=== PATIENT | male | born 1950 | race Caucasian/White ===

== ENCOUNTER 2016-08-02 07:15 | Day surgery (SDC) | payer MEDICARE ==
[2016-08-02] MEDS ORDERED: LACTATED RINGERS 1,000 ML IV ONE ×2 (07:51→09:28)
[2016-08-02] MEDS ORDERED: BENZOCAINE/TETRACAINE/BUTAMBEN SPRAY 56 GM TOP ONE (08:57)
[2016-08-02] MEDS ORDERED: EPINEPHrine ABBOJECT 1 MG/10 ML SYRINGE IVP ONE (09:00)
[2016-08-02] MEDS ORDERED: fentaNYL 100 MCG/2 ML VIAL IVP ONE (10:01)
[2016-08-02] MEDS ORDERED: MIDAZOLAM 2 MG/2 ML VIAL IVP ONE (10:01)
[2016-08-02 11:27] VITALS: BP 123/76
== END 2016-08-02 07:16 | disposition home or self-care (01) ==
LOC: SDS 07:15
PROVIDERS: ATTEND Surgery
PROC: 0DB68ZX Excision of Stomach, Via Natural or Artificial Opening Endoscopic, Diagnostic (ICD-10-PCS; principal; 2016-08-02 08:30)
PROC: 0DJD8ZZ Inspection of Lower Intestinal Tract, Via Natural or Artificial Opening Endoscopic (ICD-10-PCS; 2016-08-02 08:30)
DX: Z12.11 Encounter for screening for malignant neoplasm of colon (principal); K21.9 Gastro-esophageal reflux disease without esophagitis; Z87.891 Personal history of nicotine dependence; Z86.010 Personal history of colon polyps
CPT/HCPCS: 43239; 87081; A9270; G0121; J7120; 88305

== ENCOUNTER 2016-11-14 08:00 | Outpatient (CLI) | payer MEDICARE ==
[2016-11-14 19:21] LABS: BASOPHILS # (AUTO) 0.1 10^3/uL (0.0-0.1); BASOPHILS % (AUTO) 1.1 %; EOSINOPHILS # (AUTO) 0.6 10^3/uL (0.0-0.7); EOSINOPHILS % (AUTO) 8.3 %; HCT - HEMATOCRIT 45.6 % (42.0-52.0); HGB - HEMOGLOBIN 15.2 g/dL (14.0-18.0); LYMPHOCYTES % (AUTO) 29.7 %; MEAN CORPUSCULAR HEMOGLOBIN 30.6 pg (27.0-31.0); MEAN CORPUSCULAR HGB CONC 33.4 g/dL (32.0-36.0); MEAN CORPUSCULAR VOLUME 91.5 fL (80.0-94.0); MEAN PLATELET VOLUME 6.9 fL (7.4-11.4); MONOCYTES # (AUTO) 0.7 10^3/uL (0.0-1.0); NEUTROPHILS # (AUTO) 3.5 10^3/uL (1.5-6.6); NEUTROPHILS % (AUTO) 50.9 %; NUCLEATED RED BLOOD CELLS AUTO 0.1 /100WBC; RED BLOOD COUNT 4.98 10^6/uL (4.70-6.10); RED CELL DISTRIBUTION WIDTH 13.1 % (12.0-15.0); UNCORRECTED WHITE BLOOD COUNT 6.8 x10^3/uL; WHITE BLOOD COUNT 6.8 x10^3/uL (4.8-10.8)
[2016-11-14 19:42] LABS: ALBUMIN/GLOBULIN RATIO 1.8 (1.0-2.2); BILIRUBIN,TOTAL 0.6 mg/dL (0.2-1.0); BUN - BLOOD UREA NITROGEN 13 mg/dL (6-20); CALCIUM 9.5 mg/dL (8.5-10.3); CARBON DIOXIDE - CO2 30 mmol/L (21-32); CHLORIDE 98 mmol/L (101-111); CHOL/HDL RATIO 3.6 (<5.0); CHOLESTEROL 168 mg/dL; CREATININE 0.9 mg/dL (0.6-1.2); GFR - MDRD 84 (>89); GLUCOSE 102 mg/dL (70-100); HDL CHOLESTEROL 47 mg/dL; LDL/HDL RATIO 2.3 (<3.6); SODIUM 136 mmol/L (135-145); TRIGLYCERIDES 73 mg/dL; VLDL CHOLESTEROL 15 mg/dL
== END 2016-11-14 08:01 | disposition home or self-care (01) ==
LOC: LAB.R 08:00
PROVIDERS: ATTEND Nurse Practitioner Primary Care
DX: N40.0 Benign prostatic hyperplasia without lower urinary tract symptoms (principal); K21.9 Gastro-esophageal reflux disease without esophagitis; J32.8 Other chronic sinusitis; K27.9 Peptic ulcer, site unspecified, unspecified as acute or chronic, without hemorrhage or perforation; Z79.899 Other long term (current) drug therapy; E78.5 Hyperlipidemia, unspecified; F31.60 Bipolar disorder, current episode mixed, unspecified
CPT/HCPCS: 80053; 80061; 84153; 84443; 85025

== ENCOUNTER 2017-02-03 08:00 | Outpatient (CLI) | payer MEDICARE ==
[2017-02-03 16:36] LABS: CHOL/HDL RATIO 5.5 (<5.0); CHOLESTEROL 274 mg/dL; HDL CHOLESTEROL 50 mg/dL; TRIGLYCERIDES 121 mg/dL; VLDL CHOLESTEROL 24 mg/dL
== END 2017-02-03 08:01 | disposition home or self-care (01) ==
LOC: LAB.R 08:00
PROVIDERS: ATTEND Nurse Practitioner Primary Care
DX: E78.5 Hyperlipidemia, unspecified (principal)
CPT/HCPCS: 80061

== ENCOUNTER 2018-01-22 09:23 | Outpatient (CLI) | payer MEDICARE ==
[2018-01-22 14:13] LABS: BASOPHILS % (AUTO) 1.1 %; EOSINOPHILS # (AUTO) 0.5 10^3/uL (0.0-0.7); EOSINOPHILS % (AUTO) 11.1 %; HGB - HEMOGLOBIN 14.6 g/dL (14.0-18.0); LYMPHOCYTES # (AUTO) 1.6 10^3/uL (1.5-3.5); LYMPHOCYTES % (AUTO) 34.7 %; MEAN CORPUSCULAR HEMOGLOBIN 31.3 pg (27.0-31.0); MEAN CORPUSCULAR HGB CONC 33.9 g/dL (32.0-36.0); MEAN CORPUSCULAR VOLUME 92.3 fL (80.0-94.0); MEAN PLATELET VOLUME 6.9 fL (7.4-11.4); MONOCYTES # (AUTO) 0.5 10^3/uL (0.0-1.0); MONOCYTES % (AUTO) 10.3 %; NEUTROPHILS # (AUTO) 1.9 10^3/uL (1.5-6.6); NEUTROPHILS % (AUTO) 42.8 %; PLT - PLATELET COUNT 285 10^3/uL (130-450); RED BLOOD COUNT 4.67 10^6/uL (4.70-6.10); RED CELL DISTRIBUTION WIDTH 13.2 % (12.0-15.0); WHITE BLOOD COUNT 4.5 x10^3/uL (4.8-10.8)
[2018-01-22 14:23] LABS: ALBUMIN 4.3 g/dL (3.2-5.5); ALKALINE PHOSPHATASE 59 IU/L (42-121); ALT ALANINE AMINOTRANSFERASE 20 IU/L (10-60); AST ASPARTATE AMINOTRANSFERASE 22 IU/L (10-42); BUN - BLOOD UREA NITROGEN 14 mg/dL (6-20); CARBON DIOXIDE - CO2 30 mmol/L (21-32); CHLORIDE 100 mmol/L (101-111); CREATININE 0.9 mg/dL (0.6-1.2); GFR - MDRD 84 (>89); GLUCOSE 95 mg/dL (70-100); SODIUM 136 mmol/L (135-145); TOTAL PROTEIN 6.9 g/dL (6.7-8.2)
[2018-01-22 14:24] LABS: ALBUMIN/GLOBULIN RATIO 1.7 (1.0-2.2); CHOL/HDL RATIO 5.3 (<5.0); CHOLESTEROL 248 mg/dL; HDL CHOLESTEROL 47 mg/dL; LDL CHOLESTEROL,CALCULATED 176 mg/dL; LDL/HDL RATIO 3.7 (<3.6); VLDL CHOLESTEROL 25 mg/dL
[2018-01-22 14:41] LABS: HB2 TOTAL 15.5 g/dL; HEMOGLOBIN A1C 0.57 g/dL; HEMOGLOBIN A1C % 5.5 % (4.6-6.2)
== END 2018-01-22 23:59 | disposition home or self-care (01) ==
LOC: LAB.R 09:23
PROVIDERS: ATTEND Nurse Practitioner Primary Care
DX: R73.01 Impaired fasting glucose (principal); C67.9 Malignant neoplasm of bladder, unspecified; Z79.899 Other long term (current) drug therapy; E78.5 Hyperlipidemia, unspecified
CPT/HCPCS: 80053; 80061; 83036; 83721; 84443; 85025

== ENCOUNTER 2020-03-20 08:34 | Outpatient (CLI) | payer MEDICARE | END 2020-03-20 08:35 | disposition critical access hospital (66) | LOC: EMS 08:34 | PROVIDERS: ATTEND Surgery | DX: M54.5 Low back pain (principal); M79.604 Pain in right leg | CPT/HCPCS: A0425; A0429 ==

== ENCOUNTER 2020-03-20 08:50 | Emergency (ER) | payer MEDICARE ==
--- NOTE | 2020-03-20 08:58 | ED Physician Documentation ---
PD HPI BACK PAIN - Stated complaint Stated Complaint: BACK PX - History obtained from History obtained from: Patient - History of Present Illness Timing - onset: Last night Timing - duration: Days (/2) Timing - details: Abrupt onset, Still present Location: Lower, Right Quality: Pain, Spasm Associated symptoms: No: Fever, Weakness, Numbness, Incontinent of urine Improves with: Meds (some better with Ibuprofen last night, but severe this morning and unable to get out of bed.). No: Rest Worsened by: Movement, Twisting, Palpation (around right SI area) Contributing factors: Lifting (he was doing some usual lifting couple days ago without pain then. Had onset some pain last evening when just twisted mild and then it got worse. IMproved with Ibuprofen but markedly worse this morning.) Similar symptoms before: Has not had sx before Recently seen: Not recently seen Review of Systems Constitutional: denies: Fever, Chills Nose: denies: Rhinorrhea / runny nose, Congestion Throat: denies: Sore throat Respiratory: denies: Cough GI: denies: Abdominal Pain, Nausea, Vomiting, Constipation, Diarrhea : denies: Dysuria, Frequency, Incontinent Skin: denies: Rash, Lesions Neurologic: denies: Focal weakness, Numbness PD PAST MEDICAL HISTORY - Past Medical History Cardiovascular: High cholesterol Respiratory: None Endocrine/Autoimmune: None GI: GERD, Ulcers : Frequency HEENT: None Psych: Depression Musculoskeletal: Osteoarthritis Derm: None - Past Surgical History Past Surgical History: No General: Colonoscopy, EGD Ortho: Other - Present Medications Home Medications: Ambulatory Orders Medication Instructions Recorded Confirmed Oxycodone HCl/Acetaminophen 1 each PO Q6H PRN #20 tablet 03/20/20 [Percocet 5-325 mg Tablet] dexAMETHasone [Decadron] 4 mg PO DAILY #7 tablet 03/20/20 tiZANidine [Zanaflex] 4 mg PO Q8H PRN #25 tablet 03/20/20 - Allergies Allergies/Adverse Reactions: Allergies Allergy/AdvReac Type Severity Reaction Status Date / Time No Known Drug Allergies Allergy Verified 03/20/20 08:58 - Social History Does the pt smoke?: No Smoking Status: Never smoker Does the pt drink ETOH?: No Does the pt have substance abuse?: No - Immunizations Immunizations are current?: Yes PD ED PE NORMAL - Vitals Vital signs reviewed: Yes - General General: Alert and oriented X 3, Well developed/nourished, Other (seems in considerable pain; lying left side and guarding ROM of the back. ) - Cardiac Cardiac: RRR, No murmur - Respiratory Respiratory: Clear bilaterally - Abdomen Abdomen: Soft, Non tender - Male Male : Deferred - Rectal Rectal: Deferred - Back Back: No CVA TTP, No spinal TTP (tender at right SI area mainly. Not tender nidline. ) - Derm Derm: Normal color, Warm and dry, No rash - Neuro Neuro: Alert and oriented X 3, No motor deficit, No sensory deficit, Normal speech, Other (normal knee reflexes. ) Results - Vitals Vitals: Vital Signs - 24 hr 03/20/20 03/20/20 03/20/20 08:59 10:04 11:07 Temperature 36.7 C 36.6 C Heart Rate 78 58 L 69 Respiratory 18 16 16 Rate Blood Pressure 132/74 H 128/58 L 136/77 H O2 Saturation 100 99 96 Oxygen O2 Source Room air - Labs Labs: Laboratory Tests 03/20/20 10:30 Urine Color YELLOW Urine Clarity CLEAR Urine pH 7.0 Ur Specific [place] 1.020 Urine Protein NEGATIVE Urine Glucose (UA) NEGATIVE Urine Ketones NEGATIVE Urine Occult Blood NEGATIVE Urine Nitrite NEGATIVE Urine Bilirubin NEGATIVE Urine Urobilinogen 0.2 (NORMAL) Ur Leukocyte Esterase NEGATIVE Ur Microscopic Review NOT INDICATED Urine Culture Comments NOT INDICATED PD MEDICAL DECISION MAKING - ED course Complexity details: re-evaluated patient (improved considerably after meds and he declined further here. ), considered differential (right low back pain/SI area without red flags to suggest need for imaging/labs. ), d/w patient Departure - Departure Disposition: 01 Home, Self Care Clinical Impression: Low back strain Qualifiers: Encounter type: initial encounter Qualified Code(s): S39.012A - Strain of muscle, fascia and tendon of lower back, initial encounter Condition: Stable Record reviewed to determine appropriate education?: Yes Instructions: ED Low Back Pain Injury Prescriptions: dexAMETHasone [Decadron] 4 mg PO DAILY #7 tablet Oxycodone HCl/Acetaminophen [Percocet 5-325 mg Tablet] 1 each PO Q6H PRN #20 tablet PRN Reason: pain tiZANidine [Zanaflex] 4 mg PO Q8H PRN #25 tablet PRN Reason: Spasms Comments: This seems likely to be a strain and inflammation of the lower back muscles or the ligaments associated with the sacroiliac joint. Typically these are short- term problems meaning improving over several days to a week or 2. Mechanical treatments/physical treatments such as chiropractic massage and therapy are all good for this. Heat and gentle stretching for the low back to reduce spasming as well. Use anti-inflammatories of Decadron daily for a week as well as muscle relaxant tizanidine 3 times a day. To that add Tylenol or Percocet as needed for pain. Progress activity as able over several days to week. Recheck if not improved well in that timeframe. Discharge Date/Time: 03/20/20 11:15
[2020-03-20] MEDS ORDERED: HYDROmorphone 2 MG/ML VIAL IM STA (09:11)
[2020-03-20] MEDS ORDERED: KETOROLAC 30 MG/ML VIAL IM STA (09:11)
[2020-03-20] MEDS ORDERED: methocarbamoL 500 MG TABLET PO STA (09:11)
[2020-03-20 10:41] LABS: BILIRUBIN,URINE NEGATIVE (NEGATIVE); GLUCOSE, URINE (UA) NEGATIVE (NEGATIVE); KETONES,URINE (UA) NEGATIVE (NEGATIVE); LEUKOCYTE ESTERASE, URINE NEGATIVE (NEGATIVE); NITRITE,URINE NEGATIVE (NEGATIVE); OCCULT BLOOD,URINE NEGATIVE (NEGATIVE); PROTEIN,URINE NEGATIVE (NEGATIVE); UROBILINOGEN,URINE 0.2 (NORMAL) E.U./dL (NORMAL)
[2020-03-20 10:42] LABS: CLARITY,URINE CLEAR (CLEAR)
[2020-03-20 11:08] VITALS: BP 136/77
== END 2020-03-20 11:15 | disposition home or self-care (01) ==
LOC: EDUNIT# → ED 08:50
DX: S39.012A Strain of muscle, fascia and tendon of lower back, initial encounter (principal); X50.0XXA Overexertion from strenuous movement or load, initial encounter; Y93.89 Activity, other specified
CPT/HCPCS: 81003; 96372; 99284; 99285; A9270; J1170; 81001; 87086

== ENCOUNTER 2020-04-03 12:26 | Emergency (ER) | payer MEDICARE ==
[2020-04-03] MEDS ORDERED: KETOROLAC 30 MG/ML VIAL IVP STA (12:39)
[2020-04-03] MEDS ORDERED: HYDROmorphone 1 MG/ML CARPUJECT IVP STA ×4 (12:39→22:53)
--- NOTE | 2020-04-03 12:50 | ED Physician Documentation ---
PD HPI BACK PAIN - Stated complaint Stated Complaint: BACK PX - Chief complaint Chief Complaint: Back Pain - History obtained from History obtained from: Patient - Additional information Additional information: 69-year-old gentleman with no history of back issues until about 2 weeks ago. He developed right-sided pain near the SI joint which radiated into the buttock and leg with some numbness of the right foot. It was after working heavily around the house without specific injury. Prior to that he really had no issues with his back. Pain is severe. He was seen here and a urinalysis was done and normal. Medicated with good effect with Dilaudid and Toradol and then sent home with some pain meds (percocet/tizanidine and decadron) which was modestly effective. Over the last 5 days he has become completely nonfunctional and basically bedbound due to the pain. He denies incontinence of bowel or bladder. No fevers or unintended weight loss. He does have a remote history of bladder cancer treated without adjuvant therapy. Review of Systems Constitutional: reports: Reviewed and negative Eyes: reports: Reviewed and negative Ears: reports: Reviewed and negative Nose: reports: Reviewed and negative Throat: reports: Reviewed and negative Cardiac: reports: Reviewed and negative Respiratory: reports: Reviewed and negative PD PAST MEDICAL HISTORY - Past Medical History Cardiovascular: High cholesterol Respiratory: None Endocrine/Autoimmune: None GI: GERD, Ulcers : Frequency HEENT: None Psych: Depression Musculoskeletal: Osteoarthritis Derm: None - Past Surgical History Past Surgical History: No General: Colonoscopy, EGD Ortho: Other - Present Medications Home Medications: Ambulatory Orders Medication Instructions Recorded Confirmed Oxycodone HCl/Acetaminophen 1 each PO Q6H PRN #20 tablet 03/20/20 04/03/20 [Percocet 5-325 mg Tablet] - Allergies Allergies/Adverse Reactions: Allergies Allergy/AdvReac Type Severity Reaction Status Date / Time No Known Drug Allergies Allergy Verified 04/03/20 12:32 - Social History Does the pt smoke?: No Smoking Status: Never smoker Does the pt drink ETOH?: No Does the pt have substance abuse?: No - Immunizations Immunizations are current?: Yes PD ED PE NORMAL - Vitals Vital signs reviewed: Yes - General General: Alert and oriented X 3, Other (He appears quite uncomfortable, is laying left lateral decubitus with legs extended at the knees and hips.) - HEENT HEENT: PERRL, EOMI - Neck Neck: Supple, no meningeal sign, No bony TTP - Cardiac Cardiac: RRR, No murmur - Respiratory Respiratory: No respiratory distress, Clear bilaterally - Abdomen Abdomen: Normal bowel sounds, Soft, Non tender - Back Back: Other (Mild TTP the low lumbar spine on the right side) - Extremities Extremities: Other (Hyperesthetic to the lateral calf on the right. Otherwise he has symmetric sensation throughout the lower extremities. Difficult to check reflexes and strength on initial evaluation due to profound pain.) - Neuro Neuro: Alert and oriented X 3, Normal speech - Psych Psych: Normal mood, Normal affect Results - Vitals Vitals: Vital Signs - 24 hr 04/03/20 04/03/20 04/03/20 12:33 12:35 14:46 Temperature 37.0 C Heart Rate 93 78 70 Respiratory 19 19 18 Rate Blood Pressure 131/118 H 138/90 H 125/84 H O2 Saturation 100 96 93 04/03/20 04/03/20 04/03/20 16:00 18:00 20:00 Temperature 36.6 C Heart Rate 66 86 90 Respiratory 19 17 18 Rate Blood Pressure 114/76 119/86 H 154/94 H O2 Saturation 94 96 97 Oxygen O2 Source Room air - Labs Labs: Laboratory Tests 04/03/20 04/03/20 04/03/20 12:48 12:48 12:48 WBC 7.8 RBC 5.41 Hgb 16.3 Hct 49.2 MCV 90.9 MCH 30.1 MCHC 33.1 RDW 12.3 Plt Count 326 MPV 8.2 Neut # (Auto) 5.4 Lymph # (Auto) 1.5 [place] # (Auto) 0.6 Eos # (Auto) 0.2 Baso # (Auto) 0.1 Absolute Nucleated RBC 0.00 Nucleated RBC % 0.0 ESR 1 Sodium 137 Potassium 3.6 Chloride 101 Carbon Dioxide 25 Anion Gap 11.0 BUN 19 Creatinine 0.9 Estimated GFR (MDRD) 84 L Glucose 111 H Calcium 9.7 C-Reactive Protein < 1.0 Nasal Adenovirus (PCR) Nasal B. parapertussis DNA (PCR) Nasal Coronavir 229E PCR Nasal Coronavir HKU1 PCR Nasal Coronavir NL63 PCR Nasal Coronavir OC43 PCR Nasal Enterovir/Rhinovir PCR Nasal Influenza B PCR Nasal Influenza A PCR Nasal Parainfluen 1 PCR Nasal Parainfluen 2 PCR Nasal Parainfluen 3 PCR Nasal Parainfluen 4 PCR Nasal RSV (PCR) Nasal B.pertussis DNA PCR Nasal C.pneumoniae (PCR) [place] Human Metapneumo PCR Nasal M.pneumoniae (PCR) Nasal SARS-CoV-2 (PCR) 04/03/20 21:10 WBC RBC Hgb Hct MCV MCH MCHC RDW Plt Count MPV Neut # (Auto) Lymph # (Auto) [place] # (Auto) Eos # (Auto) Baso # (Auto) Absolute Nucleated RBC Nucleated RBC % ESR Sodium Potassium Chloride Carbon Dioxide Anion Gap BUN Creatinine Estimated GFR (MDRD) Glucose Calcium C-Reactive Protein Nasal Adenovirus (PCR) NOT DETECTED Nasal B. parapertussis DNA (PCR) NOT DETECTED Nasal Coronavir 229E PCR NOT DETECTED Nasal Coronavir HKU1 PCR NOT DETECTED Nasal Coronavir NL63 PCR NOT DETECTED Nasal Coronavir OC43 PCR NOT DETECTED Nasal Enterovir/Rhinovir PCR NOT DETECTED Nasal Influenza B PCR NOT DETECTED Nasal Influenza A PCR NOT DETECTED Nasal Parainfluen 1 PCR NOT DETECTED Nasal Parainfluen 2 PCR NOT DETECTED Nasal Parainfluen 3 PCR NOT DETECTED Nasal Parainfluen 4 PCR NOT DETECTED Nasal RSV (PCR) NOT DETECTED Nasal B.pertussis DNA PCR NOT DETECTED Nasal C.pneumoniae (PCR) NOT DETECTED [place] Human Metapneumo PCR NOT DETECTED Nasal M.pneumoniae (PCR) NOT DETECTED Nasal SARS-CoV-2 (PCR) NOT DETECTED - Rads (name of study) MRI LS W/WO Radiology: Discussed with rads (Dr Lloyd), EMP read contemporaneously (see MDM-text box too small) PD MEDICAL DECISION MAKING - ED course ED course: 69-year-old gentleman presents with severe new onset low back pain of 2 weeks duration. He has 2 "red flags" for concerning causes of back pain, age greater than 50 and history of cancer. As such MRI imaging will be obtained. MRI L Spine, W/WO contrast: 1. The finding of contrast enhancement and elevated marrow signal centered on the L3-L4 disc space which also shows a small degree of internal edema raises concern for presence of discitis/early osteomyelitis. Please correlate with laboratory tests for evidence of inflammation. White count evaluation, also, is anticipated. By this study there is no suspicion for metastatic disease. 2. The contrast enhancement imaging is a relatively subtle finding at the inferior endplate of L3, but clearly visible at the superior endplate of L4, which appears mildly irregular. Early osteomyelitis at both of these sites, best seen on contrast enhanced imaging, is suspected. 3. No identified area of soft tissue inflammation or abscess is seen along the paravertebral soft tissues. Please note that occasionally an acute "Schmorl's node" can be centered on the disc sp helena and produce both marrow edema and contrast enhancement as a result. Additional laboratory function tests and assessment over time can generally differentiate between these possibilities. 4. Chronic degenerative changes are prominent causing spinal and foraminal stenosis from L3 through L5. His pain was controlled here with divided doses narcotics with good effect. Labs are not suggestive of an inflammatory infectious etiology of his symptoms. MRI is shown. I discussed with patient options to go home with steroids, pain medications, and watchful waiting, that said he has already tried this as he was prescribed Percocet, dexamethasone, and tizanidine 2 weeks ago and is spent the last 5 days in pain unable to get out of bed. As such [facility] was called for neurosurgical consultation at 8:50 PM. I spoke with Dr. Lex Ogden, a info specialist at [facility] who independently viewed our MRI images and felt this was mostly consistent with osteomyelitis even in light of the fairly normal labs and did agree with transfer down to their hospitalist service this with his service consulting. Accetped by Dr Alexander Rojas, hospitalist to [facility]. Offered to do BCX x 2 here and he agreed, and these were drawn. Departure - Departure Disposition: 02 Transfer Acute Care Hosp Clinical Impression: Schmorl's nodes of lumbar region, Abnormal MRI, Osteomyelitis of lumbar spine Back pain Qualifiers: Back pain location: low back pain Chronicity: acute Back pain laterality: bilateral Sciatica presence: with sciatica Sciatica laterality: sciatica of right side Qualified Code(s): M54.41 - Lumbago with sciatica, right side Spinal stenosis of lumbar region Qualifiers: Neurogenic claudication status: without neurogenic claudication Qualified Code(s): M48.061 - Spinal stenosis, lumbar region without neurogenic claudication Condition: Stable
[2020-04-03 13:16] LABS: BASOPHILS # (AUTO) 0.1 10^3/uL (0.0-0.1); BASOPHILS % (AUTO) 0.9 %; EOSINOPHILS # (AUTO) 0.2 10^3/uL (0.0-0.7); EOSINOPHILS % (AUTO) 2.7 %; HCT - HEMATOCRIT 49.2 % (42.0-52.0); HGB - HEMOGLOBIN 16.3 g/dL (14.0-18.0); LYMPHOCYTES # (AUTO) 1.5 10^3/uL (1.5-3.5); MEAN CORPUSCULAR HEMOGLOBIN 30.1 pg (27.0-31.0); MEAN CORPUSCULAR HGB CONC 33.1 g/dL (32.0-36.0); MEAN CORPUSCULAR VOLUME 90.9 fL (80.0-94.0); MEAN PLATELET VOLUME 8.2 fL (7.4-11.4); MONOCYTES # (AUTO) 0.6 10^3/uL (0.0-1.0); MONOCYTES % (AUTO) 7.3 %; NEUTROPHILS # (AUTO) 5.4 10^3/uL (1.5-6.6); NEUTROPHILS % (AUTO) 69.7 %; PLT - PLATELET COUNT 326 10^3/uL (130-450); RED BLOOD COUNT 5.41 10^6/uL (4.70-6.10); RED CELL DISTRIBUTION WIDTH 12.3 % (12.0-15.0); WHITE BLOOD COUNT 7.8 x10^3/uL (4.8-10.8)
[2020-04-03 13:36] LABS: BUN - BLOOD UREA NITROGEN 19 mg/dL (6-20); CALCIUM 9.7 mg/dL (8.5-10.3); CARBON DIOXIDE - CO2 25 mmol/L (21-32); CHLORIDE 101 mmol/L (101-111); CREATININE 0.9 mg/dL (0.6-1.2); GFR - MDRD 84 (>89); GLUCOSE 111 mg/dL (70-100); POTASSIUM 3.6 mmol/L (3.5-5.0); SODIUM 137 mmol/L (135-145)
[2020-04-03 13:38] LABS: CRP - C-REACTIVE PROTEIN < 1.0 mg/dL (0-1.0)
[2020-04-03] MEDS ORDERED: GADOBUTROL 10 MMOL/10 ML VIAL ONE (18:31)
[2020-04-03] MEDS ORDERED: GADOBUTROL 10 MMOL/10 ML VIAL IVP ONE (19:13)
--- NOTE | 2020-04-03 20:12 | MRI Report ---
PROCEDURE: Lumbar Spine W/WO INDICATIONS: Low back pain, severe, hx bladder CA CONTRAST: IV CONTRAST: Gadavist ml: 8 TECHNIQUE: Noncontrast sagittal T1 spin echo and T2 fast spin echo, sagittal STIR, axial T1 and T2 fast spin ech o through the lumbar spine. In cases with scoliosis, additional coronal T2 fast spin echo may be per formed. After the administration of contrast, sagittal and axial T1 spin echo with fat saturation th rough the lumbar spine. COMPARISON: None. FINDINGS: Image quality: Excellent. Alignment and curvature: There is normal bony alignment. Marrow: Marrow is of degenerative overall signal but there is elevated fluid signal within the super ior vertebral body and endplate of L4, and a slight degree of edema is seen within the inferior endpl ate of L3. This is best identified on the sagittal STIR imaging pulse sequence, series 501, image 11. On this same image there is a subtle elevated fluid signal within the disc space of L3-L4, and on t he postcontrast sagittal imaging it can be seen in that there is contrast enhancement within the yvan ow space and associated posterior L4 endplate, and a band of elevated contrast enhancement is seen wi thin the overlying L3 vertebral body disc space. No acute wedge type vertebral body compression fract ures. No additional areas of suspicious marrow enhancement. Spinal cord: Conus medullaris terminates at the L1 level. Visualized spinal cord demonstrates robel l signal, without suspicious enhancement. Note is made of moderately severe to severe degenerative d isc disease at L3-4 and L4-5 in addition to prominent facet osteoarthritis at this level. Paraspinous soft tissues: No paravertebral masses or abnormal enhancement. IMPRESSION: 1. The finding of contrast enhancement and elevated marrow signal centered on the L3-L4 disc space wh ich also shows a small degree of internal edema raises concern for presence of discitis/early osteomy elitis. Please correlate with laboratory tests for evidence of inflammation. White count evaluation, also, is anticipated. By this study there is no suspicion for metastatic disease. 2. The contrast enhancement imaging is a relatively subtle finding at the inferior endplate of L3, bu t clearly visible at the superior endplate of L4, which appears mildly irregular. Early osteomyelitis at both of these sites, best seen on contrast enhanced imaging, is suspected. 3. No identified area of soft tissue inflammation or abscess is seen along the paravertebral soft tis sues. Please note that occasionally an acute "Schmorl's node" can be centered on the disc space and p roduce both marrow edema and contrast enhancement as a result. Additional laboratory function tests a nd assessment over time can generally differentiate between these possibilities. 4. Chronic degenerative changes are prominent causing spinal and foraminal stenosis from L3 through L 5. Reviewed by: Andrew Lloyd MD on 04/03/2020 8:10 PM PST Approved by: Andrew Lloyd MD on 04/03/2020 8:10 PM PST Station ID: [id number]
[2020-04-03 22:23] LABS: B. PARAPERTUSSIS- RESP PCR PAN NOT DETECTED; B. PERTUSSIS- RESP PCR PANEL NOT DETECTED; C. PNEUMONIAE- RESP PCR PANEL NOT DETECTED; CORONAVIRUS 229E-RESP PCR NOT DETECTED; CORONAVIRUS HKU1-RESP PCR NOT DETECTED; CORONAVIRUS NL63-RESP PCR NOT DETECTED; CORONAVIRUS OC43-RESP PCR NOT DETECTED; HUMAN METAPNEUMOVIRUS NOT DETECTED; INFLUENZA A- RESP PCR PANEL NOT DETECTED; INFLUENZA B - RESP PCR PANEL NOT DETECTED; M. PNEUMONIAE- RESP PCR PANEL NOT DETECTED; PARAINFLUENZA VIRUS 1 NOT DETECTED; PARAINFLUENZA VIRUS 2 NOT DETECTED; PARAINFLUENZA VIRUS 3 NOT DETECTED; PARAINFLUENZA VIRUS 4 NOT DETECTED; RHINOVIRUS/ENTEROVIRUS NOT DETECTED; RSV- RESP PCR PANEL NOT DETECTED; SARS-CoV-2 -RESP PCR PANEL NOT DETECTED
[2020-04-03 23:03] VITALS: BP 128/93
== END 2020-04-03 23:05 | disposition short-term general hospital (02) ==
LOC: ED 12:26
DX: M46.26 Osteomyelitis of vertebra, lumbar region (principal); M51.46 Schmorl's nodes, lumbar region; M48.061 Spinal stenosis, lumbar region without neurogenic claudication; Z85.51 Personal history of malignant neoplasm of bladder; Z20.822 Contact with and (suspected) exposure to COVID-19
CPT/HCPCS: 36415; 72158; 80048; 85025; 85651; 86140; 87040; 87631; 96374; 96375; 96376; 99284; 99285; A9585; J1170; 0202U

== ENCOUNTER 2020-04-03 23:06 | Outpatient (CLI) | payer MEDICARE | END 2020-04-03 23:59 | disposition short-term general hospital (02) | LOC: EMS 23:06 | PROVIDERS: ATTEND Emergency Medicine | DX: M46.20 Osteomyelitis of vertebra, site unspecified (principal) | CPT/HCPCS: A0425; A0428 ==

== ENCOUNTER 2020-08-04 12:40 | Outpatient (CLI) | payer MEDICARE ==
--- NOTE | 2020-08-04 14:50 | MRI Report ---
PROCEDURE: Lumbar Spine W/O INDICATIONS: SPINAL STENOSIS TECHNIQUE: Noncontrast sagittal T1 spin echo and T2 fast echo, sagittal STIR, coronal T2 axial T1 and T2 fast sp in echo through the lumbar spine. COMPARISON: Lumbar spine MRI dated 04/03/2020 FINDINGS: Image quality: Excellent. Alignment and Curvature: No plain films are available for comparison. Thus, for numbering purposes, 5 lumbar type vertebral bodies will be presumed for the current report. This should be confirmed with plain film correlation prior to any lumbar spinal intervention. There is mild grade 1 retrolisthesis of L1 on L2, L2 on L3, and L3 on L4. Mild grade 1 anterolisthesis of L5 on S1. Bone Marrow: Marrow is of normal overall signal. No acute vertebral body compression fractures. Mo derate reactive signal within the end plate adjacent to the L3-L4 and L4-L5 intervertebral discs. Mil d reactive signal within the end plates adjacent to the T10-T11, T11-T12, T12-L1, L1-L2, L2-L3, and L 5-S1 intervertebral discs. L3-L4 and L4-L5 hemilaminotomy. Spinal Cord: Conus medullaris terminates at the lower L1 level. Visualized cord demonstrates normal signal and size. Paraspinous Soft Tissues: No paravertebral masses. T12-L1: Mild disc height loss and desiccation. No significant canal, nor foraminal stenosis. L1-L2: Moderate disc height loss and desiccation. Mild diffuse disc bulge. Mild facet and ligament flavum hypertrophy. Mild epidural lipomatosis. Mild canal stenosis. Mild bilateral foraminal stenosi s. No significant change. L2-L3: Severe disc height loss and desiccation. Mild diffuse disc bulge. Mild facet and ligament f lavum hypertrophy. Mild epidural lipomatosis. Mild canal stenosis. Mild bilateral foraminal stenosis. No significant change. L3-L4: Moderate disc height loss and desiccation. Mild diffuse disc bulge. Mild facet and ligament flavum hypertrophy. Decreased, mild canal stenosis. No change in severe right and moderate left subar ticular foraminal stenosis. Right L3 nerve root compression is unchanged. L4-L5: Severe disc height loss and desiccation. Mild diffuse disc bulge/osteophyte. Mild bilateral facet hypertrophy. Decreased, mild canal stenosis. Moderate subarticular foraminal stenosis bilateral ly is unchanged. L5-S1: Moderate disc height loss and desiccation. Mild diffuse disc bulge. Moderate bilateral facet hypertrophy. Mild canal stenosis. Moderate to severe right and mild left foraminal stenosis. Mild ri ght L5 nerve root compression. No significant change. IMPRESSION: 1. Postsurgical sequelae. 2. Multilevel degenerative disc and facet disease, in addition to epidural lipomatosis and ligamentum flavum hypertrophy. 3. Multilevel mild canal stenoses. 4. Multilevel foraminal stenoses, worst at L3-L4 and L5-S1 where there is associated intraforaminal n erve root compression. Recommend correlation with conical symptoms to ascertain relevance of these fi ndings. Next line 5. Five lumbar type vertebral bodies were presumed for the purposes of the current report. Correlation with plainfilms for numbering purposes is recommended prior to any lumbar spinal intervention. Reviewed by: Clifford Pabon MD on 08/04/2020 2:49 PM PDT Approved by: Clifford Pabon MD on 08/04/2020 2:49 PM PDT Station ID: [id number]
== END 2020-08-04 12:41 | disposition home or self-care (01) ==
LOC: DI 12:40
PROVIDERS: ATTEND Student in an Organized Health Care Education/Training Program
DX: M48.062 Spinal stenosis, lumbar region with neurogenic claudication (principal); M51.36 Other intervertebral disc degeneration, lumbar region; M21.372 Foot drop, left foot; Z98.890 Other specified postprocedural states